=== PATIENT | female | born 1985 | race American Indian/Alaskan Native ===

== ENCOUNTER 2017-03-04 18:34 | Emergency (ER) | payer SELFPAY ==
--- NOTE | 2017-03-04 18:50 | Emergency Department Report ---
Chief Complaint: Urogenital-Female Stated Complaint: PELVIC DISCOMFORT Time Seen by Provider: 03/04/17 18:48 - HPI History of Present Illness: pelvic pain x 1 week - ROS Review of Systems: + urinary frequency + irregular period - dysuria - Exam Physical Exam: pt looks well, non toxic. no acute distress No cva tenderness seb MSE screening note: Focused history and physical exam performed. Due to findings the following was ordered: labs ED Disposition for MSE Condition: Stable
[2017-03-04 19:24] LABS: Bacteria,Urine 1+ /HPF (Negative); Bilirubin,Urine NEG (Negative); Blood,Urine NEG (Negative); Ketones,Urine NEG (Negative); Leukocyte Esterase,Urine NEG (Negative); Mucus,Urine FEW /HPF; Nitrite,Urine NEG (Negative); Protein,Urine <15 mg/dL mg/dL (Negative); Urobilinogen,Urine < 2.0 mg/dL (<2.0)
--- NOTE | 2017-03-04 21:43 | Emergency Department Report ---
ED Female HPI - General Chief complaint: Urogenital-Female Stated complaint: PELVIC DISCOMFORT Time Seen by Provider: 03/04/17 18:48 Source: patient Mode of arrival: Ambulatory Limitations: No Limitations - History of Present Illness Initial comments: 31-year-old female past medical history Trichomonas infection presents with complaint of approximately 1 week of intermittent pelvic crampy pain and brownish vaginal discharge. Patient denies vaginal hemorrhage. Denies dysuria denies increased urinary frequency denies nausea vomiting abdominal pain Onset/Timin -: week(s) Location: suprapubic Radiation: suprapubic Severity: mild Quality: cramping Consistency: intermittent Are you Now?: Yes Last Menstrual Period: 02/26/17 EDC: 12/03/17 Associated Symptoms: vaginal discharge, vaginal bleeding - Related Data Sexually active: Yes : 2 Para: 1 Previous Rx's Medication Instructions Recorded Last Taken Type Pnv95/Ferrous Fumarate/FA 1 each PO QDAY #1 bottle 03/05/17 Unknown Rx [ Formula Tablet] metroNIDAZOLE [Flagyl] 500 mg PO Q12HR #14 tab 03/05/17 Unknown Rx Allergies Allergy/AdvReac Type Severity Reaction Status Date / Time No Known Allergies Allergy Unverified 11/11/15 19:37 ED Review of Systems ROS: Stated complaint: PELVIC DISCOMFORT Other details as noted in HPI Constitutional: denies: chills, fever Eyes: denies: eye pain, eye discharge, vision change ENT: denies: ear pain, throat pain Respiratory: denies: cough, shortness of breath, wheezing Cardiovascular: denies: chest pain, palpitations Endocrine: no symptoms reported Gastrointestinal: denies: abdominal pain, nausea, diarrhea Genitourinary: denies: urgency, dysuria, discharge Musculoskeletal: denies: back pain, joint swelling, arthralgia Skin: denies: rash, lesions Neurological: denies: headache, weakness, paresthesias Psychiatric: denies: anxiety, depression Hematological/Lymphatic: denies: easy bleeding, easy bruising ED Past Medical Hx - Past Medical History Previous Medical History?: Yes Additional medical history: Trichomonas - Surgical History Past Surgical History?: No - Social History Smoking Status: Current Every Day Smoker Substance Use Type: Alcohol, Marijuana - Medications Home Medications: Home Medications Medication Instructions Recorded Confirmed Last Taken Type Pnv95/Ferrous Fumarate/FA 1 each PO QDAY #1 bottle 03/05/17 Unknown Rx [ Formula Tablet] metroNIDAZOLE [Flagyl] 500 mg PO Q12HR #14 tab 03/05/17 Unknown Rx ED Physical Exam - General Limitations: No Limitations General appearance: alert, in no apparent distress - Head Head exam: Present: atraumatic, normocephalic - Eye Eye exam: Present: normal appearance, PERRL, EOMI - ENT ENT exam: Present: mucous membranes moist - Neck Neck exam: Present: normal inspection - Respiratory Respiratory exam: Present: normal lung sounds bilaterally. Absent: respiratory distress - Cardiovascular Cardiovascular Exam: Present: regular rate, normal rhythm. Absent: systolic murmur, diastolic murmur, rubs, gallop - GI/Abdominal GI/Abdominal exam: Present: soft, normal bowel sounds - Rectal Rectal exam: Present: deferred - External exam: Present: normal external exam Speculum exam: Present: normal speculum exam, vaginal bleeding (some dark) Bi-manual exam: Present: normal bi-manual exam (there is no cervical motion tenderness or adnexal tenderness bilaterally on digital or bimanual pelvic exam) - Extremities Exam Extremities exam: Present: normal inspection, full ROM - Back Exam Back exam: Present: normal inspection - Neurological Exam Neurological exam: Present: alert, oriented X3, CN II-XII intact, normal gait - Psychiatric Psychiatric exam: Present: normal affect, normal mood - Skin Skin exam: Present: warm, dry, intact, normal color. Absent: rash ED Course Vital Signs 03/04/17 18:46 Temperature 99.2 F Pulse Rate 96 H Respiratory 16 Rate Blood Pressure 151/99 O2 Sat by Pulse 100 Oximetry ED Medical Decision Making - Lab Data Result diagrams: 03/04/17 21:41 03/04/17 21:50 - Medical Decision Making A/P: Vaginal bleeding, early , vaginal discharge 1-patient was unaware that she was , ultrasound shows single intrauterine , no ectopic, but no heart tones detected as of yet , approximately 5 weeks by gestational size, no pole detected yet. Patient informed of results and need for follow-up with [facility] and need for repeat ultrasounds and hormone levels. Patient is O+ blood type, H&H is normal and CBC 2-patient has bacterial vaginosis I will treat empirically with Flagyl 3-no evidence of UTI, patient has no dysuria 4-follow-up with [facility] 5- I discussed case with Dr. Santana before discharge, as no heart tones detected yet repeat ultrasound in 48 hours for repeat hCG level Critical care attestation.: If time is entered above; I have spent that time in minutes in the direct care of this critically ill patient, excluding procedure time. ED Disposition Clinical Impression: Bacterial vaginosis Qualifiers: Weeks of gestation: less than 8 weeks Qualified Code(s): Z3A.01 - Less than 8 weeks gestation of Disposition: TO HOME OR SELFCARE Is pt being admited?: No Does the pt Need Aspirin: No Condition: Stable Instructions: Bacterial Vaginosis (ED), (ED) Additional Instructions: Patient advised to return to the ED in 48 hours for repeat ultrasound and hCG level as per Dr. Ivett Mary Prescriptions: metroNIDAZOLE [Flagyl] 500 mg PO Q12HR #14 tab Pnv95/Ferrous Fumarate/FA [ Formula Tablet] 1 each PO QDAY #1 bottle Referrals: [facility] [Provider Group] - 3-5 Days LOULOU SARMIENTO MD [Staff Physician] - 3-5 Days Forms: STI Treatment and Prevention, Work/School Release Form(ED) Time of Disposition: 00:28
[2017-03-04 22:00] LABS: Basophils % (Auto) 0.4 % (0.0-1.8); Eosinophils % (Auto) 1.2 % (0.0-4.3); Hematocrit 35.4 % (30.3-42.9); Hemoglobin 11.7 gm/dl (10.1-14.3); Mean Corpuscular HGB Conc 33 % (30-34); Mean Corpuscular Hemoglobin 28 pg (28-32); Mean Corpuscular Volume 86 fl (79-97); Platelet Count 371 K/mm3 (140-440); Red Blood Count 4.12 M/mm3 (3.65-5.03); Red Cell Distribution Width 13.8 % (13.2-15.2); White Blood Count 6.5 K/mm3 (4.5-11.0)
[2017-03-04 22:17] LABS: Anion Gap 18 mmol/L; Blood Urea Nitrogen 10 mg/dL (7-17); Calcium 9.4 mg/dL (8.4-10.2); Carbon Dioxide 23 mmol/L (22-30); Chloride 99.6 mmol/L (98-107); Glucose 94 mg/dL (65-100); Potassium 3.8 mmol/L (3.6-5.0); Sodium 137 mmol/L (137-145)
[2017-03-04 23:01] LABS: Alanine Aminotransferase 14 units/L (7-56); Albumin 4.2 g/dL (3.9-5); Albumin/Globulin Ratio 1.2 %; Bilirubin,Direct < 0.2 mg/dL (0-0.2); Total Protein 7.6 g/dL (6.3-8.2)
[2017-03-04 23:16] LABS: Alkaline Phosphatase 58 units/L (35-129)
--- NOTE | 2017-03-04 23:29 | Ultrasound Report ---
FINAL REPORT PROCEDURE: US OB TRANSVAGINAL TECHNIQUE: Real-time transvaginal sonography of the uterus, placenta, amniotic fluid, adnexa, and fetus was performed with image documentation. Measurements were obtained to determine age/size. M-mode Doppler was used to document heartbeat. CPT 18104 HISTORY: pelvic pain COMPARISON: No prior studies are available for comparison. FINDINGS: There is a single intrauterine gestational sac with a mean gestational sac diameter of 9.9 millimeters corresponding to 5 weeks and 5 days of gestational age. Expected date of delivery 10/30/2017. Yolk sac is visualized. However pole is not seen. Uterus measures 8.8 x 4.7 x 8.2 centimeters. Right ovary measures 3.6 x 2.2 x 3.3 centimeters with evidence of a hypoechoic lesion measuring 2.2 centimeters without any Doppler flow. Left ovary measures 2.6 x 1.7 x 1.8 centimeters with normal echotexture. There is no free fluid. IMPRESSION: A single gestational sac is identified corresponding to mean gestational age of 5 weeks and 5 days. A pole is not visualized. This may represent a very early viable gestation versus early gestation failure. Follow-up studies are recommended. A hypoechoic lesion measuring 2.2 centimeters involving the right ovary without Doppler signal most likely represents a hemorrhagic corpus luteum
--- NOTE | 2017-03-04 23:31 | Ultrasound Report ---
FINAL REPORT PROCEDURE: US OB \T\lt; = 14 WEEKS FETUS TECHNIQUE: Real-time transabdominal sonography of the uterus, placenta, amniotic fluid, adnexa, and fetus was performed with image documentation. Measurements were obtained to determine age/size. M-mode Doppler was used to document heartbeat. CPT 00918 HISTORY: pelvic pain COMPARISON: No prior studies are available for comparison. FINDINGS: There is a single intrauterine gestational sac with a mean gestational sac diameter of 9.9 millimeters corresponding to 5 weeks and 5 days of gestational age. Expected date of delivery 10/30/2017. Yolk sac is visualized. However pole is not seen. Uterus measures 8.8 x 4.7 x 8.2 centimeters. Right ovary measures 3.6 x 2.2 x 3.3 centimeters with evidence of a hypoechoic lesion measuring 2.2 centimeters without any Doppler flow. Left ovary measures 2.6 x 1.7 x 1.8 centimeters with normal echotexture. There is no free fluid. IMPRESSION: A single gestational sac is identified corresponding to mean gestational age of 5 weeks and 5 days. A pole is not visualized. This may represent a very early viable gestation versus early gestation failure. Follow-up studies are recommended. A hypoechoic lesion measuring 2.2 centimeters involving the right ovary without Doppler signal most likely represents a hemorrhagic corpus luteum
[2017-03-05 00:43] VITALS: BP 141/96
== END 2017-03-05 00:43 | disposition home or self-care (01) ==
LOC: ED 18:34
DX: O23.591 Infection of other part of genital tract in pregnancy, first trimester (principal); F17.210 Nicotine dependence, cigarettes, uncomplicated; F12.10 Cannabis abuse, uncomplicated; Z3A.01 Less than 8 weeks gestation of pregnancy
CPT/HCPCS: 36415; 76801; 76817; 80048; 80074; 81001; 81025; 84702; 85025; 86850; 86900; 86901; 87210; 87591